=== PATIENT | female | born 1965 | race Caucasian/White ===

== ENCOUNTER 2022-05-26 14:50 | Inpatient (IN) | payer MEDICARE, OTHER ==
[~2022-05-26 14:50] MED LIST: Iopamidol 300 61% 100 ML VIAL FS ONE
[2022-05-26 16:50] LABS: #Monocytes 0.8 10x3/uL (0.0-1.1); #Neutrophils 8.1 10x3/uL (1.5-8.4); %Basophils 0.1 % (0.0-2.0); %Eosinophils 0.2 % (0.0-6.0); %Lymphocytes 12.3 % (18.0-47.0); %Monocytes 7.6 % (0.0-10.0); %Neutrophils 79.5 % (40.0-75.0); Hemoglobin 12.1 g/dL (12.0-15.5); Mean Corpuscular HGB CONC 35.2 g/dL (32.0-36.0); Mean Corpuscular Hemoglobin 31.8 pg (27.0-33.0); Mean Corpuscular Volume 90.3 fl (81.6-98.3); Mean Platelet Volume 9.5 fl (7.4-10.4); Platelet Count 226 10x3/uL (150-450); RBC Distribution Width 13.3 % (11.5-14.5); Red Blood Cell (RBC) Count 3.81 10x6/uL (3.90-5.03); White Blood Cell (WBC) Count 10.2 10x3/uL (3.5-10.5)
[2022-05-26 17:00] LABS: ALT (SGPT) 51 U/L (8-55); AST (SGOT) 103 U/L (5-34); Albumin 3.5 g/dL (3.5-5.0); Alkaline Phosphatase 65 U/L (40-110); Anion Gap 13 mmol/L (10-20); BUN (Urea Nitrogen) 13 mg/dL (9.8-20.1); Bilirubin, Total 0.9 mg/dL (0.2-1.2); Calc. Creatinine Clearance 0 mL/min (70-130); Calcium 8.8 mg/dL (7.8-10.44); Carbon Dioxide 27 mmol/L (22-29); Chloride 99 mmol/L (98-107); Estimated GFR 77; Globulin 3.5 g/dL (2.4-3.5); Glucose 138 mg/dL (70-105); Potassium 3.3 mmol/L (3.5-5.1); Sodium 136 mmol/L (136-145)
[2022-05-26] MEDS ORDERED: Morphine 4 MG/ML VIAL ONE (18:17)
[2022-05-26] MEDS ORDERED: Ondansetron PF 4 MG/2 ML Vial ONE ×2 (18:17→18:20)
[2022-05-26] MEDS ORDERED: Bisacodyl 10 MG SUPP PR PRN (21:34)
[2022-05-26] MEDS ORDERED: Ondansetron PF 4 MG/2 ML Vial IVP PRN (21:34)
[2022-05-26] MEDS ORDERED: Bisacodyl 5 MG TAB PO PRN (21:34)
[2022-05-26] MEDS ORDERED: Senokot S 8.6-50 MG TAB PO PRN (21:34)
[2022-05-26] MEDS ORDERED: Acetaminophen 650 MG Suppository PR PRN (21:38)
[2022-05-26] MEDS ORDERED: Methocarbamol 1 GM in Sodium Chloride 0.9% 100 ML IVPB PRN (21:41)
[2022-05-27] MEDS: Sodium Chloride 0.9% 1,000 ML IV SCH ×3 (01:11→09:24)
[2022-05-27] MEDS: Potassium Chloride 20 MEQ in Premix Bag 1 BAG IVPB SCH ×5 (01:40→16:13)
[2022-05-27] MEDS: Ketorolac Tromethamine 30 MG/ML VIAL IVP PRN ×3 (01:41→18:16)
[2022-05-27 02:10] VITALS: BMI 33.4
[2022-05-27 03:07] LABS: SARS-CoV-2 NAA Rapid Test Not Detected (NotDetected)
[2022-05-27] MEDS ORDERED: Potassium Chloride 40 MEQ in Premix Bag 1 BAG IVPB SCH (08:00)
[2022-05-27 08:14] LABS: #Eosinphils 0.1 10x3/uL (0.0-0.5); #Monocytes 0.7 10x3/uL (0.0-1.1); #Neutrophils 5.7 10x3/uL (1.5-8.4); %Basophils 0.3 % (0.0-2.0); %Eosinophils 0.8 % (0.0-6.0); %Lymphocytes 16.1 % (18.0-47.0); %Monocytes 9.4 % (0.0-10.0); %Neutrophils 73.1 % (40.0-75.0); Hemoglobin 10.4 g/dL (12.0-15.5); Mean Corpuscular Hemoglobin 31.1 pg (27.0-33.0); Mean Corpuscular Volume 91.6 fl (81.6-98.3); Mean Platelet Volume 9.2 fl (7.4-10.4); Platelet Count 220 10x3/uL (150-450); RBC Distribution Width 13.5 % (11.5-14.5); Red Blood Cell (RBC) Count 3.34 10x6/uL (3.90-5.03); White Blood Cell (WBC) Count 7.8 10x3/uL (3.5-10.5)
[2022-05-27 08:25] LABS: Anion Gap 13 mmol/L (10-20); BUN (Urea Nitrogen) 17 mg/dL (9.8-20.1); Calc. Creatinine Clearance 119 mL/min (70-130); Calcium 7.8 mg/dL (7.8-10.44); Carbon Dioxide 26 mmol/L (22-29); Chloride 104 mmol/L (98-107); Estimated GFR 85; Glucose 104 mg/dL (70-105); Potassium 3.5 mmol/L (3.5-5.1); Sodium 139 mmol/L (136-145)
[2022-05-27] MEDS: Famotidine/PF 20 mg/2ml Vial SLOW IVP SCH ×2 (09:16→21:24)
[2022-05-27] MEDS ORDERED: Cyclobenzaprine 10 MG TAB PO PRN (09:51)
[2022-05-27] MEDS ORDERED: Potassium Chloride 20 MEQ in Premix Bag 1 BAG IVPB SCH (15:00)
[2022-05-27] MEDS ORDERED: Pregabalin 75 MG CAP PO SCH (21:00)
[2022-05-27] MEDS ORDERED: traMADol HCl 50 MG TAB PO PRN (21:50)
[2022-05-28] MEDS: Sodium Chloride 0.9% 1,000 ML IV SCH ×2 (02:21→05:57)
[2022-05-28] MEDS ORDERED: Acetaminophen 325 MG TAB ONE (04:49)
[2022-05-28] MEDS ORDERED: Acetaminophen 325 MG TAB PO PRN (04:50)
[2022-05-28] MEDS ORDERED: Thyroid 60 MG TAB PO SCH (09:00)
[2022-05-28] MEDS: Famotidine/PF 20 mg/2ml Vial SLOW IVP SCH (09:29)
[2022-05-28 12:14] VITALS: BP 145/74; TEMP 98.3
== END 2022-05-28 11:50 | disposition home or self-care (01) | DRG 394 ==
LOC: CSHERS 14:50 → CSHERHOLD 20:50 → CSHTELE 05-27 00:57
PROVIDERS: ADMIT Family Medicine; ATTEND Internal Medicine
PROC: 0D9670Z Drainage of Stomach with Drainage Device, Via Natural or Artificial Opening (ICD-10-PCS; principal; 2022-05-26)
DX: K91.89 Other postprocedural complications and disorders of digestive system (principal); K56.7 Ileus, unspecified; E87.6 Hypokalemia; G89.29 Other chronic pain; Z20.822 Contact with and (suspected) exposure to COVID-19; E66.9 Obesity, unspecified; D63.1 Anemia in chronic kidney disease; N18.2 Chronic kidney disease, stage 2 (mild); I12.9 Hypertensive chronic kidney disease with stage 1 through stage 4 chronic kidney disease, or unspecified chronic kidney disease; D53.9 Nutritional anemia, unspecified; Z88.2 Allergy status to sulfonamides; Z98.890 Other specified postprocedural states; Z79.899 Other long term (current) drug therapy; Z90.710 Acquired absence of both cervix and uterus; Z68.33 Body mass index [BMI] 33.0-33.9, adult
CPT/HCPCS: 71045; 74018; 74177; 80048; 80053; 85025; 96360; 96361; J1885; J2270; J2405; J3480; J7050; Q9967; S0028; U0002

== ENCOUNTER 2024-11-27 08:49 | Outpatient (CLI) | payer OTHER | END 2024-11-27 08:50 | disposition home or self-care (01) | LOC: CSHSLEEP 08:49 | PROVIDERS: ATTEND Family Medicine | DX: G47.9 Sleep disorder, unspecified (principal); G25.81 Restless legs syndrome; R53.83 Other fatigue; G47.00 Insomnia, unspecified; G47.33 Obstructive sleep apnea (adult) (pediatric); G47.61 Periodic limb movement disorder | CPT/HCPCS: 95810 ==

== ENCOUNTER 2024-12-23 13:29 | Outpatient (CLI) | payer OTHER | END 2024-12-23 13:30 | disposition home or self-care (01) | LOC: CSHMAMMO 13:29 | PROVIDERS: ATTEND Family Medicine | DX: Z12.31 Encounter for screening mammogram for malignant neoplasm of breast (principal); Z80.3 Family history of malignant neoplasm of breast | CPT/HCPCS: 77063; 77067 ==